=== PATIENT | male | born 1980 | race Two or more races ===

== ENCOUNTER 2022-04-12 12:20 | Emergency (ER) | payer MEDICAID ==
[~2022-04-12] VITALS: Ht 175.3 cm; Wt 79.3 kg
[2022-04-12 13:23] VITALS: BP 140/85
[2022-04-12] MEDS ORDERED: IBU600T PO (14:07)
[2022-04-12] MEDS ORDERED: CEPH-510 PO (14:07)
[2022-04-12] MEDS ORDERED: CLIN-203 PO (14:07)
[2022-04-12] MEDS ORDERED: CLINDAMYCIN 600 MG/4 ML VL IM ONE (14:15)
[2022-04-12] MEDS ORDERED: cefTRIAXone SOD 1,000 MG VL IM ONE (14:15)
[2022-04-12 15:09] LABS: Basophils # (auto) 0.1 10 ^3/uL (0-0.2); Basophils % (auto) 0.7 % (0.0-2.0); Eosinophils # (auto) 0.4 10 ^3/uL (0-0.8); Eosinophils % (auto) 3.2 % (0.0-7.0); Hematocrit 39.8 % (41.0-53.0); Hemoglobin 13.3 g/dL (13.5-17.5); Lymphocytes # (auto) 1.8 10 ^3/uL (0.4-5.4); Lymphocytes % (auto) 12.9 % (10.0-50.0); Mean Corpuscular Hemoglobin 29.8 pg (28.0-32.0); Mean Corpuscular Hgb Conc. 33.5 g/dL (32.0-36.0); Mean Corpuscular Volume 88.7 fL (80.0-100.0); Monocytes # (auto) 0.9 10 ^3/uL (0-1.3); Monocytes % (auto) 6.4 % (0.0-12.0); Neutrophils # (auto) 10.4 10 ^3/uL (1.6-8.6); Neutrophils % (auto) 76.8 % (37.0-80.0); Red Blood Cells 4.48 10^6/uL (4.5-5.90); Red Cell Distribution Width 13.4 % (11.8-14.3); White Blood Cell 13.5 10^3/uL (4.4-10.8)
[2022-04-12 15:35] LABS: Alanine Aminotransferase 23 U/L (16-61); Alkaline Phosphatase 117 U/L (45-117); Anion Gap 9 (5-15); Aspartate Aminotransferase 15 U/L (15-37); BUN/Creatinine Ratio 9.3; Bilirubin, Total 0.3 mg/dL (0.2-1.0); Blood Urea Nitrogen 7 mg/dL (7-18); Calcium 9.2 mg/dL (8.5-10.1); Carbon Dioxide 26 mmol/L (21-32); Chloride 104 mmol/L (98-107); GFR African American 147 mL/min; GFR Non-African American 121 mL/min; Glucose 104 mg/dL (74-106); Potassium 3.9 mmol/L (3.5-5.1); Sodium 139 mmol/L (136-145)
[2022-04-12 15:36] LABS: Albumin 3.5 g/dL (3.4-5.0); Total Protein 8.4 g/dL (6.4-8.2)
== END 2022-04-12 19:20 | disposition home or self-care (01) ==
LOC: ER 12:20
DX: L03.114 Cellulitis of left upper limb (principal); F17.210 Nicotine dependence, cigarettes, uncomplicated; F12.10 Cannabis abuse, uncomplicated; F15.10 Other stimulant abuse, uncomplicated; Z59.00 Homelessness unspecified; Z88.0 Allergy status to penicillin
CPT/HCPCS: 36415; 80053; 85025

== ENCOUNTER 2022-04-14 07:54 | Inpatient (IN) | payer MEDICAID ==
[~2022-04-14] VITALS: Ht 175.3 cm; Wt 77.6 kg
[~2022-04-14 07:54] MED LIST: CEPH-510 PO; CLIN-203 PO; IBU600T PO
[2022-04-14] MEDS ORDERED: VANCOMYCIN 1GM/250ML 250 ML IV ONE (09:00)
[2022-04-14] MEDS ORDERED: CLINDAMYCIN 600MG IV 50 ML IV ONE (09:00)
[2022-04-14 09:16] LABS: Eosinophils # (auto) 0.5 10 ^3/uL (0-0.8); Eosinophils % (auto) 2.7 % (0.0-7.0); Hemoglobin 13.7 g/dL (13.5-17.5); White Blood Cell 17.4 10^3/uL (4.4-10.8)
[2022-04-14 09:17] LABS: Basophils # (auto) 0.2 10 ^3/uL (0-0.2); Basophils % (auto) 0.9 % (0.0-2.0); Lymphocytes % (auto) 11.4 % (10.0-50.0); Mean Corpuscular Hemoglobin 29.5 pg (28.0-32.0); Mean Corpuscular Hgb Conc. 33.5 g/dL (32.0-36.0); Mean Corpuscular Volume 88.2 fL (80.0-100.0); Monocytes # (auto) 1.6 10 ^3/uL (0-1.3); Monocytes % (auto) 9.4 % (0.0-12.0); Neutrophils # (auto) 13.2 10 ^3/uL (1.6-8.6); Neutrophils % (auto) 75.6 % (37.0-80.0); Red Blood Cells 4.65 10^6/uL (4.5-5.90); Red Cell Distribution Width 13.2 % (11.8-14.3)
[2022-04-14 09:47] LABS: Albumin 3.3 g/dL (3.4-5.0); BUN/Creatinine Ratio 16.5; Bilirubin, Total 0.9 mg/dL (0.2-1.0); Calcium 8.8 mg/dL (8.5-10.1); Potassium 3.6 mmol/L (3.5-5.1); Total Protein 8.2 g/dL (6.4-8.2)
[2022-04-14] MEDS ORDERED: IOHEXOL 350 MG/ML 100ML IJ ONE (10:32)
[2022-04-14] MEDS ORDERED: LIDOCAINE 1% HCL (LOCAL ANESTH.) INJ 20ML MDV IJ ONE (13:30)
[2022-04-14 16:30] LABS: Urine Specific Gravity 1.017 (1.001-1.035)
[2022-04-14 16:31] LABS: Urine Blood Negative /uL (Negative)
[2022-04-14] MEDS ORDERED: VANCOMYCIN PER PHARMACY 0 MG IV SCH (20:00)
[2022-04-14 20:21] LABS: Urine WBC NONE SEEN /hpf (0 - 3)
[2022-04-14 20:22] LABS: Urine Bacteria NONE SEEN /hpf (None Seen)
[2022-04-14 20:59] LABS: Cholesterol 128 mg/dL (< 200); HDL Cholesterol 39 mg/dL (40-59); LDL Cholesterol 90 mg/dL (< 100); Triglycerides 120 mg/dL (< 150)
[2022-04-14] MEDS: VANCOMYCIN 1GM/250ML 250 ML IV SCH (21:02)
[2022-04-14] MEDS: SODIUM CHLORIDE 0.9% 1,000 ML IV SCH (21:02)
[2022-04-14] MEDS: ASCORBIC ACID 500 MG TAB PO SCH (22:37)
[2022-04-14] MEDS: CLINDAMYCIN 600MG IV 50 ML IV SCH (22:38)
[2022-04-15] MEDS: SODIUM CHLORIDE 0.9% 1,000 ML IV SCH ×3 (04:47→20:44)
[2022-04-15] MEDS: VANCOMYCIN 1GM/250ML 250 ML IV SCH ×3 (04:48→23:12)
[2022-04-15] MEDS: CLINDAMYCIN 600MG IV 50 ML IV SCH ×2 (05:51→20:39)
[2022-04-15 09:41] LABS: Basophils # (auto) 0.1 10 ^3/uL (0-0.2); Basophils % (auto) 0.5 % (0.0-2.0); Eosinophils # (auto) 0.4 10 ^3/uL (0-0.8); Eosinophils % (auto) 3.7 % (0.0-7.0); Hematocrit 38.3 % (41.0-53.0); Hemoglobin 12.6 g/dL (13.5-17.5); Lymphocytes # (auto) 1.3 10 ^3/uL (0.4-5.4); Lymphocytes % (auto) 11.6 % (10.0-50.0); Mean Corpuscular Hemoglobin 29.4 pg (28.0-32.0); Mean Corpuscular Hgb Conc. 32.8 g/dL (32.0-36.0); Mean Corpuscular Volume 89.5 fL (80.0-100.0); Monocytes # (auto) 1.3 10 ^3/uL (0-1.3); Monocytes % (auto) 11.7 % (0.0-12.0); Neutrophils % (auto) 72.5 % (37.0-80.0); Nucleated Red Blood Cells % 0.1 %; Red Blood Cells 4.28 10^6/uL (4.5-5.90); Red Cell Distribution Width 13.6 % (11.8-14.3)
[2022-04-15 10:23] LABS: Albumin 2.9 g/dL (3.4-5.0); BUN/Creatinine Ratio 16.7; Bilirubin, Total 0.5 mg/dL (0.2-1.0); Calcium 8.8 mg/dL (8.5-10.1); Potassium 4.4 mmol/L (3.5-5.1); Total Protein 6.6 g/dL (6.4-8.2)
[2022-04-15] MEDS: ZINC SULFATE 220mg CAP or TAB PO SCH (11:50)
[2022-04-15] MEDS: MULTIPLE VITAMIN TAB PO SCH (11:51)
[2022-04-15] MEDS: ASCORBIC ACID 500 MG TAB PO SCH ×2 (11:52→23:12)
[2022-04-15] MEDS: ENOXAPARIN SOD 40 MG/0.4 ML SYRINGE SC SCH (11:53)
[2022-04-15] MEDS: ACETAMINOPHEN 325 MG TAB PO PRN (21:02)
[2022-04-15 22:00] VITALS: BP 116/73
[2022-04-16] MEDS: CLINDAMYCIN 600MG IV 50 ML IV SCH ×3 (03:00→20:11)
[2022-04-16] MEDS: VANCOMYCIN 1GM/250ML 250 ML IV SCH ×4 (04:11→22:06)
[2022-04-16 05:00] VITALS: BP 111/55
[2022-04-16] MEDS: SODIUM CHLORIDE 0.9% 1,000 ML IV SCH ×3 (05:24→22:00)
[2022-04-16] MEDS ORDERED: INFLUENZA QUAD 2022-2023 0.5 ML SYRG IM ONE (06:30)
[2022-04-16 09:00] VITALS: BP 139/68
[2022-04-16] MEDS: MULTIPLE VITAMIN TAB PO SCH (10:00)
[2022-04-16] MEDS: ZINC SULFATE 220mg CAP or TAB PO SCH (10:35)
[2022-04-16] MEDS: ASCORBIC ACID 500 MG TAB PO SCH ×2 (10:35→22:04)
[2022-04-16] MEDS: ENOXAPARIN SOD 40 MG/0.4 ML SYRINGE SC SCH (10:36)
[2022-04-16 13:00] VITALS: BP 102/68
[2022-04-16 16:51] VITALS: BP 101/68
[2022-04-16 22:00] VITALS: BP 113/69
[2022-04-17] MEDS ORDERED: diphenhdrAMINE HCL 25 MG CAP PO ONE ×2 (00:15→00:45)
[2022-04-17] MEDS: CLINDAMYCIN 600MG IV 50 ML IV SCH (03:04)
[2022-04-17] MEDS: VANCOMYCIN 1GM/250ML 250 ML IV SCH ×3 (04:10→16:00)
[2022-04-17 05:00] VITALS: BP 117/71
[2022-04-17 07:13] LABS: Basophils # (auto) 0.1 10 ^3/uL (0-0.2); Basophils % (auto) 0.9 % (0.0-2.0); Eosinophils # (auto) 0.6 10 ^3/uL (0-0.8); Eosinophils % (auto) 8.8 % (0.0-7.0); Hematocrit 38.6 % (41.0-53.0); Lymphocytes # (auto) 0.7 10 ^3/uL (0.4-5.4); Lymphocytes % (auto) 11.4 % (10.0-50.0); Mean Corpuscular Hemoglobin 29.6 pg (28.0-32.0); Mean Corpuscular Hgb Conc. 33.7 g/dL (32.0-36.0); Mean Corpuscular Volume 87.7 fL (80.0-100.0); Monocytes # (auto) 1.1 10 ^3/uL (0-1.3); Monocytes % (auto) 16.3 % (0.0-12.0); Neutrophils % (auto) 62.6 % (37.0-80.0); Red Cell Distribution Width 13.3 % (11.8-14.3); White Blood Cell 6.4 10^3/uL (4.4-10.8)
[2022-04-17 07:30] LABS: Calcium 8.7 mg/dL (8.5-10.1); Potassium 4.1 mmol/L (3.5-5.1)
[2022-04-17 07:36] LABS: Albumin 3.1 g/dL (3.4-5.0); BUN/Creatinine Ratio 15.1; Bilirubin, Total 0.5 mg/dL (0.2-1.0); Total Protein 7.7 g/dL (6.4-8.2)
[2022-04-17] MEDS: SODIUM CHLORIDE 0.9% 1,000 ML IV SCH ×3 (07:41→23:00)
[2022-04-17 09:00] VITALS: BP 119/74
[2022-04-17] MEDS: ENOXAPARIN SOD 40 MG/0.4 ML SYRINGE SC SCH (10:00)
[2022-04-17] MEDS: MULTIPLE VITAMIN TAB PO SCH (10:09)
[2022-04-17] MEDS: ZINC SULFATE 220mg CAP or TAB PO SCH (10:09)
[2022-04-17] MEDS: ASCORBIC ACID 500 MG TAB PO SCH ×2 (10:09→22:49)
[2022-04-17 13:00] VITALS: BP 108/69
[2022-04-17 17:00] VITALS: BP 120/69
[2022-04-17] MEDS ORDERED: LIDOCAINE 1%HCL (LOCAL ANESTH) 10 ML MDV ID ONE (17:00)
[2022-04-18] MEDS: SODIUM CHLORIDE 0.9% 1,000 ML IV SCH ×4 (03:51→22:26)
[2022-04-18 05:00] VITALS: BP 111/68
[2022-04-18 08:51] VITALS: BP 104/65
[2022-04-18] MEDS: ENOXAPARIN SOD 40 MG/0.4 ML SYRINGE SC SCH (10:00)
[2022-04-18] MEDS: ASCORBIC ACID 500 MG TAB PO SCH ×2 (10:34→22:13)
[2022-04-18] MEDS: MULTIPLE VITAMIN TAB PO SCH (10:35)
[2022-04-18] MEDS: ZINC SULFATE 220mg CAP or TAB PO SCH (10:35)
[2022-04-18] MEDS: levoFLOXacin 500MG 100 ML IV SCH (12:30)
[2022-04-18 13:00] VITALS: BP 108/69
[2022-04-18 14:29] LABS: Calcium 8.8 mg/dL (8.5-10.1)
[2022-04-18 15:22] LABS: Potassium 5.1 mmol/L (3.5-5.1)
[2022-04-18 16:33] VITALS: BP 118/70
[2022-04-18] MEDS: VANCOMYCIN 1GM/250ML 250 ML IV SCH (17:00)
[2022-04-18 21:43] VITALS: BP 96/57
[2022-04-18] MEDS: ACETAMINOPHEN 325 MG TAB PO PRN (22:25)
[2022-04-18 22:30] VITALS: BP 116/81
[2022-04-19] MEDS: VANCOMYCIN 1GM/250ML 250 ML IV SCH ×3 (02:59→23:30)
[2022-04-19 05:00] VITALS: BP 110/72
[2022-04-19] MEDS: SODIUM CHLORIDE 0.9% 1,000 ML IV SCH ×2 (07:04→16:40)
[2022-04-19 09:00] VITALS: BP 140/65
[2022-04-19 10:02] LABS: Albumin 3.2 g/dL (3.4-5.0); BUN/Creatinine Ratio 21.6; Calcium 8.8 mg/dL (8.5-10.1); Phosphorus 3.5 mg/dL (2.5-4.90); Potassium 4.3 mmol/L (3.5-5.1)
[2022-04-19] MEDS: levoFLOXacin 500MG 100 ML IV SCH (10:25)
[2022-04-19] MEDS: ZINC SULFATE 220mg CAP or TAB PO SCH (10:26)
[2022-04-19] MEDS: ASCORBIC ACID 500 MG TAB PO SCH ×2 (10:26→21:41)
[2022-04-19] MEDS: ENOXAPARIN SOD 40 MG/0.4 ML SYRINGE SC SCH (10:26)
[2022-04-19] MEDS: MULTIPLE VITAMIN TAB PO SCH (10:26)
[2022-04-19 13:00] VITALS: BP 118/72
[2022-04-19] MEDS ORDERED: HYDROcodone-ACET 5/325MG TAB PO ONE (14:00)
[2022-04-19 17:00] VITALS: BP 116/77
[2022-04-19] MEDS ORDERED: HYDROcodone-ACET 5/325MG TAB PO PRN (21:00)
[2022-04-19] MEDS: MORPHINE SULFATE INJ 2 MG/ml SYRG IV PRN (21:41)
[2022-04-19 22:00] VITALS: BP 111/75
[2022-04-20] MEDS: SODIUM CHLORIDE 0.9% 1,000 ML IV SCH ×3 (02:46→18:20)
[2022-04-20 05:00] VITALS: BP 117/72
[2022-04-20 09:00] VITALS: BP 121/78
[2022-04-20] MEDS: ZINC SULFATE 220mg CAP or TAB PO SCH (10:16)
[2022-04-20] MEDS: ASCORBIC ACID 500 MG TAB PO SCH ×2 (10:16→22:18)
[2022-04-20] MEDS: MULTIPLE VITAMIN TAB PO SCH (10:16)
[2022-04-20] MEDS: ENOXAPARIN SOD 40 MG/0.4 ML SYRINGE SC SCH (10:16)
[2022-04-20] MEDS: VANCOMYCIN 1GM/250ML 250 ML IV SCH ×2 (10:17→18:21)
[2022-04-20] MEDS: levoFLOXacin 500MG 100 ML IV SCH (10:17)
[2022-04-20] MEDS: MORPHINE SULFATE INJ 2 MG/ml SYRG IV PRN (11:28)
[2022-04-20] MEDS ORDERED: DOXY-332 PO (12:48)
[2022-04-20] MEDS ORDERED: LEVO500T31 PO (12:48)
[2022-04-20 13:00] VITALS: BP 116/83
[2022-04-20 17:00] VITALS: BP 114/68
[2022-04-20 22:00] VITALS: BP 114/64
[2022-04-21] MEDS: VANCOMYCIN 1GM/250ML 250 ML IV SCH ×2 (04:26→15:00)
[2022-04-21] MEDS: SODIUM CHLORIDE 0.9% 1,000 ML IV SCH ×2 (04:27→10:20)
[2022-04-21 05:00] VITALS: BP 113/59
[2022-04-21 07:07] LABS: RPR Non Reactive (Non Reactive)
[2022-04-21 08:00] VITALS: BP 111/58
[2022-04-21] MEDS: ZINC SULFATE 220mg CAP or TAB PO SCH (10:00)
[2022-04-21] MEDS: MULTIPLE VITAMIN TAB PO SCH (10:39)
[2022-04-21] MEDS: levoFLOXacin 500MG 100 ML IV SCH (10:39)
[2022-04-21] MEDS: ASCORBIC ACID 500 MG TAB PO SCH (10:39)
[2022-04-21] MEDS: ENOXAPARIN SOD 40 MG/0.4 ML SYRINGE SC SCH (10:39)
[2022-04-21 12:00] VITALS: BP 122/76
[2022-04-21 16:00] VITALS: BP 113/66
== END 2022-04-21 17:15 | disposition home or self-care (01) | DRG 383 ==
LOC: ER 07:54 → OVERFLOW 20:01 → WEST WING 04-15 19:06 → CENTRAL 04-18 22:00
PROVIDERS: ADMIT Nurse Practitioner Family; ATTEND Internal Medicine
PROC: 0H9EXZZ Drainage of Left Lower Arm Skin, External Approach (ICD-10-PCS; principal; 2022-04-14)
PROC: 3E0234Z Introduction of Serum, Toxoid and Vaccine into Muscle, Percutaneous Approach (ICD-10-PCS; 2022-04-19)
DX: L02.414 Cutaneous abscess of left upper limb (principal); F12.10 Cannabis abuse, uncomplicated; R73.9 Hyperglycemia, unspecified; R74.01 Elevation of levels of liver transaminase levels; Z20.822 Contact with and (suspected) exposure to COVID-19; L03.113 Cellulitis of right upper limb; L03.114 Cellulitis of left upper limb; F17.210 Nicotine dependence, cigarettes, uncomplicated; F14.90 Cocaine use, unspecified, uncomplicated; F15.10 Other stimulant abuse, uncomplicated; Z88.0 Allergy status to penicillin; Z68.26 Body mass index [BMI] 26.0-26.9, adult; Z71.6 Tobacco abuse counseling; Z59.00 Homelessness unspecified; Z23 Encounter for immunization
CPT/HCPCS: 10060; 36415; 73201; 73221; 80048; 80053; 80061; 80069; 80202; 81001; 83036; 83605; 85025; 86592; 86703; 87040; 87205; 87426; 96365; 96366; 96367; G0378; J1956; J2001; J3490